=== PATIENT | male | born 1995 | race Caucasian/White ===

== ENCOUNTER 2018-07-10 16:46 | Emergency (ER) | payer BC, OTHER ==
[2018-07-10 17:35] VITALS: BP 145/68
--- NOTE | 2018-07-10 19:13 | UC ---
Lower Extremity/Ankle HPI - HPI Summary HPI Summary: 22 yo obese WM presents with right kneww pain x few weeks, kneels alot at work and carries several hundreds of pounds of objects at work, sometimes feels weak when sitting for long periods of time and then getting up, denies hip, ankle or LBP - History of Current Complaint Chief Complaint: UCLowerExtremity Stated Complaint: RIGHT KNEE CONCERN Time Seen by Provider: 07/10/18 17:35 Hx Obtained From: Patient Onset/Duration: Sudden Onset, Lasting Days Severity Initially: Moderate Severity Currently: Moderate Pain Intensity: 7 - Allergies/Home Medications Allergies/Adverse Reactions: Allergies Allergy/AdvReac Type Severity Reaction Status Date / Time No Known Allergies Allergy Verified 07/10/18 17:35 Home Medications: Home Medications Ibuprofen TAB* [Motrin TAB* 400 MG] 400 mg PO Q6H PRN 07/10/18 [History Confirmed 07/10/18] PMH/Surg Hx/FS Hx/Imm Hx - Surgical History Surgical History: Yes Surgery Procedure, Year, and Place[facility] - Social History Alcohol Use: None Substance Use Type: None Smoking Status (MU): Never Smoked Tobacco Review of Systems All Other Systems Reviewed And Are Negative: Yes Constitutional: Positive: Negative Skin: Positive: Negative Eyes: Positive: Negative ENT: Positive: Negative Respiratory: Positive: Negative Cardiovascular: Positive: Negative Gastrointestinal: Positive: Negative Genitourinary: Positive: Negative Motor: Positive: Negative Neurovascular: Positive: Negative Musculoskeletal: Positive: Other: - see HPI Neurological: Positive: Negative Psychological: Positive: Negative Physical Exam - Summary Physical Exam Summary: Vital Signs Reviewed: Yes Appearance: Positive: Well-Appearing Skin: Positive: Warm Head/Face: Positive: Normal Head/Face Inspection Eyes: Positive: Normal, EOMI, CHENG ENT: Positive: Normal ENT inspection Neck: Positive: Supple Respiratory/Lung Sounds: Positive: Clear to Auscultation Cardiovascular: Positive: Normal, RRR, S1, S2 Abdomen Positive: Nontender, Soft Musculoskeletal: Positive: left knee tenderness- moderate over the patella, NEG joint pain tenderness Neurological: Positive: CN Intact II-XII Psychiatric: Positive: Normal Vital Signs: Initial Vital Signs Temp 36.3 C 07/10/18 17:29 Pulse 69 07/10/18 17:29 Resp 16 07/10/18 17:29 BP 145/68 07/10/18 17:29 Pulse Ox 100 07/10/18 17:29 Lower Extremity Course/Dx - Course Course Of Treatment: XR of right knee neg for fx, likely patellar bone contusion and knee stiffness realted to repeated to repeated motion at work. Advised knee brace, NSAIDS and ortho eval in pain persists - Differential Dx/Diagnosis Provider Diagnosis: Pain of right patella Discharge - Sign-Out/Discharge Documenting (check all that apply): Patient Departure All imaging exams completed and their final reports reviewed: Yes - Discharge Plan Condition: Stable Disposition: HOME Patient Education Materials: Knee Pain (ED) Referrals: Justin Freed [Primary Care Provider] - Additional Instructions: follow up with PCP and ortho within 2 weeks for MRI and further eval if pain persists - Billing Disposition and Condition Condition: STABLE Disposition: Home
== END 2018-07-10 19:24 | disposition home or self-care (01) ==
LOC: UCCORT 16:46
DX: M25.561 Pain in right knee (principal)
CPT/HCPCS: 99211; G0463